=== PATIENT | female | born 1995 | race Caucasian/White ===

== ENCOUNTER 2020-03-24 19:49 | Emergency (ER) | payer OTHER ==
[~2020-03-24] VITALS: Ht 160 cm; Wt 75.7 kg
== END 2020-03-24 21:41 | disposition home or self-care (01) ==
LOC: ED 19:49
DX: J02.9 Acute pharyngitis, unspecified (principal); Z20.822 Contact with and (suspected) exposure to COVID-19; F17.200 Nicotine dependence, unspecified, uncomplicated; Z88.8 Allergy status to other drugs, medicaments and biological substances; Z88.5 Allergy status to narcotic agent
CPT/HCPCS: 84703; 87880; 99283; U0003